=== PATIENT | male | born 1970 | race Caucasian/White ===

== ENCOUNTER 2017-03-19 18:51 | Emergency (ER) | payer OTHER ==
[~2017-03-19] VITALS: Ht 182.9 cm; Wt 95.5 kg
[2017-03-19] MEDS ORDERED: TETANUS/DIPHTHERIA TOX ADSORB ADULT 0.5ML SYR/VIAL (90714) IM ONE (19:30)
[2017-03-19] MEDS ORDERED: IBUPROFEN 600 MG TAB PO ONE (19:30)
[2017-03-19 20:19] VITALS: BP 161/92
== END 2017-03-19 20:22 | disposition home or self-care (01) ==
LOC: M ED 18:51
DX: S01.91XA Laceration without foreign body of unspecified part of head, initial encounter (principal); W22.09XA Striking against other stationary object, initial encounter; Y92.091 Bathroom in other non-institutional residence as the place of occurrence of the external cause; Y93.E1 Activity, personal bathing and showering; Y99.9 Unspecified external cause status

== ENCOUNTER → 2023-05-26 | Outpatient (CLI) | payer MEDICAID, OTHER ==
[2023-05-26 14:52] LABS: BASO % 0.6 % (0.0-1.0); EOS # 0.1 10^3/uL (0.0-0.5); EOS % 1.9 % (0.0-3.0); HEMATOCRIT 39.6 % (42.0-52.0); HEMOGLOBIN 13.5 g/dl (13.5-17.5); LYMPH # 0.9 10^3/uL (1.5-5.0); LYMPH % 13.3 % (24.0-44.0); MEAN CORPUSCULAR HEMOGLOBIN 32.1 pg (27.0-33.0); MEAN CORPUSCULAR HGB CONC 34.1 g/dl (32.0-36.5); MEAN CORPUSCULAR VOLUME 94.1 fl (80.0-96.0); MONO # 0.6 10^3/uL (0.0-0.8); MONO % 8.5 % (2.0-8.0); NEUTROPHILS # 4.9 10^3/uL (1.5-8.5); NEUTROPHILS % 75.5 % (36.0-66.0); PLATELET COUNT, AUTOMATED 180 10^3/uL (150-450); RED BLOOD COUNT 4.21 10^6/uL (4.30-6.10); WHITE BLOOD COUNT 6.5 10^3/uL (4.0-10.0)
[2023-05-27 16:09] LABS: PSA TOTAL 0.3 ng/mL (0.0-4.0)
[2023-05-30 14:52] LABS: ALT/SGPT 16 IU/L (0-32); AST/SGOT 19 IU/L (0-40); BLOOD UREA NITROGEN 17 MG/DL (8-27); CALCIUM LEVEL 9.4 MG/DL (8.7-10.3); CARBON DIOXIDE LEVEL 23 mmol/L (20-29); CHLORIDE LEVEL 102 mmol/L (96-106); CREATININE FOR GFR 0.92 MG/DL (0.57-1.00); GLOMERULAR FILTRATION RATE > 60.0 (>59); POTASSIUM SERUM 4.6 mmol/L (3.5-5.2); SODIUM LEVEL 139 mmol/L (134-144)
[2023-05-30 14:53] LABS: ALBUMIN 4.9 G/DL (3.9-4.9); ALKALINE PHOSPHATASE 57 IU/L (44-121); BILIRUBIN,TOTAL 0.4 MG/DL (0.0-1.2); CHOLESTEROL LEVEL 156 MG/DL (100-199); CHOLESTEROL RISK RATIO 2.888 (<5); FREE T4 0.91 NG/DL (0.82-1.77); HDL CHOLESTEROL 54 MG/DL (>39); LDL CHOLESTEROL 87.2 MG/DL (<100); NON-HDL-C 102 MG/DL; TOTAL PROTEIN 6.6 G/DL (6.0-8.5); TRIGLYCERIDES LEVEL 74 MG/DL (0-149)
[2023-05-30 14:54] LABS: GLUCOSE, FASTING 86 MG/DL (70-99)
== END ==
LOC: M PLALAB 08:50
PROVIDERS: ATTEND Physician Assistant
DX: Z00.01 Encounter for general adult medical examination with abnormal findings (principal)

== ENCOUNTER → 2023-09-26 | Outpatient (CLI) | payer OTHER | LOC: M PLAIMG 12:15 | PROVIDERS: ATTEND Physician Assistant | DX: M25.512 Pain in left shoulder (principal); M25.562 Pain in left knee ==

== ENCOUNTER → 2023-10-21 | Outpatient (CLI) | payer OTHER | LOC: M RAD 11:03 | PROVIDERS: ATTEND Physician Assistant | DX: M25.562 Pain in left knee (principal); M67.52 Plica syndrome, left knee ==

== ENCOUNTER → 2023-12-21 | Outpatient (CLI) | payer OTHER | LOC: M SOG 15:53 | PROVIDERS: ATTEND Physician Assistant | DX: M25.562 Pain in left knee (principal) ==

== ENCOUNTER → 2024-03-15 | Outpatient (CLI) | payer OTHER | LOC: M PLALAB 08:19 | PROVIDERS: ATTEND Physician Assistant | DX: N52.9 Male erectile dysfunction, unspecified (principal) ==

== ENCOUNTER → 2024-04-25 | Outpatient (CLI) | payer OTHER | LOC: M PLALAB 07:35 | PROVIDERS: ATTEND Physician Assistant | DX: N52.9 Male erectile dysfunction, unspecified (principal) ==

== ENCOUNTER → 2024-06-04 | Outpatient (CLI) | payer OTHER | LOC: M PLAIMG 11:50 | PROVIDERS: ATTEND Physician Assistant | DX: M54.50 Low back pain, unspecified (principal) ==

== ENCOUNTER → 2024-06-26 | Outpatient (CLI) | payer OTHER | LOC: M WHC 15:32 | PROVIDERS: ATTEND Physician Assistant | DX: N50.819 Testicular pain, unspecified (principal); K44.9 Diaphragmatic hernia without obstruction or gangrene ==

== ENCOUNTER → 2024-07-16 | Outpatient (CLI) | payer OTHER | LOC: M PLAIMG 07:03 | PROVIDERS: ATTEND Physician Assistant | DX: M54.59 Other low back pain (principal) ==

== ENCOUNTER → 2024-09-25 | Outpatient (CLI) | payer OTHER | LOC: M WHC 07:00 | PROVIDERS: ATTEND Physician Assistant | DX: R10.13 Epigastric pain (principal); K76.89 Other specified diseases of liver ==

== ENCOUNTER → 2024-10-02 | Outpatient (CLI) | payer OTHER ==
[~2024-10-02] MED LIST: ISOVUE-370 76% 100ML VIAL ONE
== END ==
LOC: M PLAIMG 11:05
PROVIDERS: ATTEND Surgery
DX: K43.2 Incisional hernia without obstruction or gangrene (principal)
CPT/HCPCS: 74177; Q9967

== ENCOUNTER → 2025-04-14 | Outpatient (CLI) | payer OTHER ==
[~2025-04-14] MED LIST changes: +ALBU8.5H INH; -ISOVUE-370 76% 100ML VIAL ONE; +LISI20TA33 PO; +MELO7.5T35 PO; +OMEP40CA5 PO
== END ==
LOC: M SOG 07:35
PROVIDERS: ATTEND Physician Assistant
DX: M25.512 Pain in left shoulder (principal)